=== PATIENT | female | born 1970 | race Caucasian/White ===

== ENCOUNTER 2018-05-13 15:11 | Outpatient (CLI) | payer OTHER ==
--- NOTE | 2018-05-13 16:19 | MMO ---
BILATERAL DIGITAL SCREENING MAMMOGRAMS: Date: 05/13/18 This patient's mammogram was interpreted with the assistance of computer-aided detection. Comparison made with exam of 12/26/16. FINDINGS: There are scattered fibroglandular densities. No suspicious masses, calcifications, or architectural distortion seen. IMPRESSION: BIRADS 1: Negative Return to annual mammographic screening. POS: CLARA
== END 2018-05-13 15:12 | disposition home or self-care (01) ==
LOC: SCSMAMMO 15:11
PROVIDERS: ATTEND Nurse Practitioner
DX: Z12.31 Encounter for screening mammogram for malignant neoplasm of breast (principal)
CPT/HCPCS: 77067